=== PATIENT | female | born 1995 | race Hispanic/Latino ===

== ENCOUNTER 2020-09-26 08:07 | Outpatient (CLI) | payer BC, OTHER ==
[2020-09-26 15:58] LABS: Bilirubin Negative (Negative); Blood, Urine Negative (Negative); Clarity Clear (Clear); Glucose, Urine (Dipstick) Normal (Negative); Ketone, Urine 10 mg/dL (Negative); Leukocyte 25 Leu/uL (Negative); Nitrite Negative (Negative); Protein, Urine (Dipstick) Negative (Neg-Trace); RBC/HPF 0-3 HPF (0-3); Specific Gravity, Urine 1.015 (1.002-1.036); Squamous Epithelial 0-3 HPF (0-3); Urobilinogen Normal mg/dL (Less than 2); WBC/HPF 0-3 HPF (0-3); pH, Urine 5.5 (5.0-9.0)
[2020-09-26 16:00] LABS: Bacteria/HPF Rare-Few HPF (None Seen); Yeast-Budding Rare HPF (None Seen)
[2020-09-26 16:09] LABS: BHCG - Serum Negative (NEGATIVE); Pregs Control Background? CLEAR/WHITE (CLR/WHITE); Pregs Control Bar Appear? YES (CONTROL BAR)
[2020-09-27 10:30] LABS: SARS-CoV-2 MS2 Positive; SARS-CoV-2 N Gene Negative; SARS-CoV-2 S Gene Negative; SARS-CoV-2 by NAA Not Detected (NotDetected); SARS-CoV-2 orf1ab Negative
== END 2020-09-26 08:08 | disposition home or self-care (01) ==
LOC: LABBT 08:07
PROVIDERS: ATTEND Urology
DX: Z01.812 Encounter for preprocedural laboratory examination (principal); Z20.828 Contact with and (suspected) exposure to other viral communicable diseases; N36.8 Other specified disorders of urethra
CPT/HCPCS: 81001; 84703; 87086; 87635; U0003

== ENCOUNTER 2020-09-29 06:02 | Observation (INO) | payer BC ==
[2020-09-28 11:53] VITALS: BMI 24.2
[2020-09-29] MEDS ORDERED: Levofloxacin 500 mg/D5W 100 ml Premix Bag ONE (06:55)
[2020-09-29] MEDS ORDERED: Midazolam HCl 2 mg/2 ml Vial ONE (07:04)
[2020-09-29] MEDS ORDERED: Bacitracin Zinc Ointment 30 gm TUBE ONE (07:09)
[2020-09-29] MEDS ORDERED: Bupivacaine 0.5% 10 ML VIAL ONE (07:31)
[2020-09-29] MEDS ORDERED: Fentanyl 100 MCG/2 ML VIAL ONE ×2 (07:42→09:06)
[2020-09-29] MEDS ORDERED: Promethazine HCl 25 MG/ML VIAL IM PRN (08:46)
[2020-09-29] MEDS ORDERED: Ketorolac Tromethamine 30 MG/ML VIAL IVP PRN (08:46)
[2020-09-29] MEDS ORDERED: HYDROmorphone 2 MG/ML VIAL SLOW IVP PRN (08:46)
[2020-09-29] MEDS ORDERED: Promethazine HCl 25 MG/ML VIAL SLOW IVP PRN (08:46)
[2020-09-29] MEDS ORDERED: Meperidine HCl/PF 25 MG/ML VIAL SLOW IVP PRN (08:46)
[2020-09-29] MEDS ORDERED: Ondansetron HCl/PF 4 MG/2 ML Vial IVP PRN (08:46)
[2020-09-29] MEDS ORDERED: diphenhydrAMINE 50 MG/ML VIAL IVP PRN (09:10)
[2020-09-29] MEDS ORDERED: Zolpidem Tartrate 5 MG TAB PO PRN (09:10)
[2020-09-29] MEDS ORDERED: Morphine 4 MG/ML VIAL SLOW IVP PRN (09:10)
[2020-09-29] MEDS ORDERED: Ondansetron PF 4 MG/2 ML Vial IVP PRN (09:10)
[2020-09-29] MEDS ORDERED: Esmolol 100 MG/10 ML VIAL ONE (09:43)
[2020-09-29] MEDS ORDERED: D5 1/2 NS w/20 mEq KCL 1,000 ML ONE (10:03)
[2020-09-29] MEDS ORDERED: Dexamethasone 20 MG/5 ML VIAL ONE (10:16)
[2020-09-29] MEDS ORDERED: Ondansetron PF 4 MG/2 ML Vial ONE (10:16)
[2020-09-29] MEDS ORDERED: Ketorolac Tromethamine 30 MG/ML VIAL ONE (10:16)
[2020-09-29] MEDS ORDERED: Lidocaine 1% PF 5 ML VIAL ONE (10:16)
[2020-09-29] MEDS ORDERED: EPHEDRINE 25 MG/5 ML SYRINGE ONE (10:16)
[2020-09-29] MEDS ORDERED: PROPOFOL 200 MG/20 ML VIAL ONE (10:16)
[2020-09-29] MEDS ORDERED: Metoprolol Tartrate 5 MG/5 ML VIAL ONE (10:16)
--- NOTE | 2020-09-29 11:09 | OP ---
DATE OF PROCEDURE: 09/29/2020 PREOPERATIVE DIAGNOSIS: [place]'s gland cyst. POSTOPERATIVE DIAGNOSIS: Urethral diverticulum. PROCEDURE PERFORMED: Cystoscopy, urethral diverticulectomy. ANESTHESIA: General plus 10 mL of 0.5% Marcaine, local. COMPLICATIONS: None. ESTIMATED BLOOD LOSS: 40 mL. SPECIMEN: Diverticulum sac. DESCRIPTION OF PROCEDURE: After informed consent, the patient was taken to the operating room, transferred to the table. Anesthesia was established. A time-out was performed, showing the correct patient, site, and procedure. Preoperative antibiotics were administered. She was prepped and draped in the lithotomy position. Cystoscopy was performed with a 17-Austrian rigid cystoscope, noting normal appearance of the urethra and no mucosal abnormalities of the bladder. Both ureters in normal appearance. The scope was then withdrawn and the cyst at the 7 o'clock position at the very distal aspect of the urethra was identified and a small incision performed over this. The cyst was dissected about 50%, at which point, it was then inadvertently opened draining a small amount of purulent drainage. I was unable to completely excise around the cyst and opened it noting a small os into the urethra. This was within 5 mm of the distal aspect of the urethra. It was dissected down upon the os and then transected. I considered simply performing meatotomy back to the level of the os; however, given the very small size, I elected to close this with 3-0 Vicryl suture in an interrupted fashion and then imbricated a second layer over top also with 3-0 Vicryl. Deep layers were closed with 2-0 Vicryl and then vaginal mucosa was closed with 3-0 chromic in a running fashion. Cystoscopy was then again performed noting no obvious urethral defects or filling of vaginal mucosa with fluid. Both ureters were effluxing clear urine. The scope was withdrawn and a 16-Austrian Eden catheter placed with 10 mL instilled in the balloon draining clear urine. Vaginal packing was placed and an ABD pad over top. She was then awoken from anesthesia, transferred back to her hospital bed and taken to PACU in stable condition, where she will be admitted overnight. Job ID: [id number]
[2020-09-29] MEDS: Ketorolac Tromethamine 30 MG/ML VIAL IVP PRN ×2 (15:39→20:49)
[2020-09-29] MEDS ORDERED: cefTRIAXone\\ROCEPHIN 1 GM in Sodium Chloride 0.9% 100 ML IVPB SCH (16:00)
[2020-09-29] MEDS: D5 1/2 NS w/20 mEq KCL 1,000 ML IV SCH ×2 (16:26→20:40)
[2020-09-29] MEDS: HYDROcodone/Acetaminophen 5/325 mg Tablet PO PRN (20:54)
[2020-09-30] MEDS: HYDROcodone/Acetaminophen 5/325 mg Tablet PO PRN (06:03)
[2020-09-30] MEDS: Ketorolac Tromethamine 30 MG/ML VIAL IVP PRN (06:07)
[2020-09-30 07:55] VITALS: BP 93/59; TEMP 97.7
[2020-09-30] MEDS: D5 1/2 NS w/20 mEq KCL 1,000 ML IV SCH (08:15)
[2020-09-30] MEDS ORDERED: FLU VACC QS2020-21(6MOS UP)/PF 60 MCG/0.5 ML SYRINGE IM ONE (09:00)
== END 2020-09-30 10:30 | disposition home or self-care (01) ==
LOC: SDC 06:02 → SURG A 11:08
PROVIDERS: ADMIT Urology; ATTEND Urology
PROC: 0TB Urinary System, Excision (ICD-10-PCS; principal; 2020-09-30)
DX: N36.1 Urethral diverticulum (principal); N36.8 Other specified disorders of urethra; J30.2 Other seasonal allergic rhinitis
CPT/HCPCS: 88304; 90471; 90662; 96374; 96375; 96376; G0008; G0378; J0696; J1100; J1885; J1956; J2250; J2405; J2704; J3010; J3480; J3490